=== PATIENT | female | born 1960 | race Caucasian/White ===

== ENCOUNTER 2017-09-25 11:37 | Emergency (ER) | payer OTHER, MEDICAID ==
[~2017-09-25] VITALS: Ht 152.4 cm; Wt 45.8 kg
[~2017-09-25 11:37] MED LIST: BACTRIM DS TAB1 EACH PO; BENTYL 10 MG CA10 M1; BENTYL 10 MG CA10 M1 PO; CELEXA20 MG PO; CIPRO500 M1 PO; CIPROFLOXACIN500 M1 PO; CLONAZEPAM0.5 MG PO; CYCLOBENZAPRINE10 MG PO; DESYREL50 MG; HYDROCODON-ACE1 EAC7 PO; LIDODERM 5%1 PATCH TOP; LINZESS145 MCG PO; LISINOPRIL20 MG PO; MACROBID 100 M100 M1 PO; MEDROL DOSPAK21 TA1 PO; METFORMIN HCL500 MG PO; MOBIC15 MG PO; MOBIC7.5 MG PO; NAPROSYN500 MG PO; ONDANSETRON HCL4 M3 PO; PRILOSEC40 MG; PROBIOTIC1 EAC1 PO; PROTONIX 20 MG20 M1 PO; PROZAC 20 MG20 M1; PYRIDIUM200 MG PO; RANITIDINE HCL150 M1; ROBAXIN 750 MG750 M1 PO; ROBAXIN500 MG PO; SEROQUEL; SKELAXIN 800 M800 M1 PO; ULTRAM 50MG TAB50 MG PO; VALIUM5 MG PO; VISTARIL PO; ZANTAC 150MG T150 MG PO; ZOCOR 10 MG TAB10 MG; ZOFRAN 4 MG ORAL4 M1 DIS
[2017-09-25] MEDS ORDERED: NEURONTIN250 MG/5 M PO (11:45)
[2017-09-25] MEDS ORDERED: IBS MEDICATION (11:46)
[2017-09-25] MEDS ORDERED: CLONAZEPAM 0.50.5 M1 PO ×2 (11:46→11:51)
[2017-09-25] MEDS ORDERED: SLEEP AID (11:46)
[2017-09-25] MEDS ORDERED: GABAPENTIN 100100 MG PO (11:50)
[2017-09-25] MEDS ORDERED: NULEV0.125 MG PO (11:50)
[2017-09-25] MEDS ORDERED: REMERON15 M2 PO (11:50)
[2017-09-25 12:38] LABS: URINE BILIRUBIN NEGATIVE (Negative); URINE BLOOD NEGATIVE (Negative); URINE CLARITY CLEAR; URINE COLOR YELLOW; URINE GLUCOSE-RANDOM NEGATIVE (Negative); URINE KETONES NEGATIVE (Negative); URINE LEUKOCYTES-REFLEX 1+ (Negative); URINE NITRITE-REFLEX NEGATIVE (Negative); URINE PROTEIN NEGATIVE (Negative); URINE SPECIFIC GRAVITY <= 1.005 (1.005-1.030); URINE UROBILINOGEN 0.2 E.U./dl (0.2-1.0)
[2017-09-25 12:46] LABS: AMP/METHAMP Negative (Negative); BARBITURATES Negative (Negative); BENZODIAZEPINES Negative (Negative); COCAINE Negative (Negative); METHADONE Negative (Negative); OPIATES Negative (Negative); PCP Negative (Negative); SQUAMOUS >10 Many /LPF (0-3); THC Negative (Negative)
[2017-09-25 12:47] LABS: ABSOLUTE EOSINOPHILS 0.1 thou/uL (0.0-0.7); ABSOLUTE LYMPHOCYTES 2.4 thou/uL (0.8-5.3); ABSOLUTE MONOCYTES 0.7 thou/uL (0.0-1.2); ABSOLUTE NEUTROPHILS 6.5 thou/uL (1.6-8.1); BASOPHILS 0.4 %; HEMATOCRIT 52.1 % (37.0-47.0); HEMOGLOBIN 17.4 gm/dL (12.0-15.0); LYMPHOCYTES 24.7 %; MCH 32.6 pg (26.0-34.0); MCHC 33.5 g/dL (28.0-37.0); MCV 97.5 fL (80.0-100.0); MONOCYTES 7.6 %; MPV 7.9 fl. (7.2-11.1); NUCLEATED RBCS 0 /100WBC; PLATELET COUNT* 267 thou/uL (150-400); POLYS 66.3 %; RBC 5.34 mil/uL (4.20-5.00); RDW-CV 12.7 % (10.5-14.5); WBC 9.8 thou/uL (4.0-11.0)
[2017-09-25 12:47] LABS: BACTERIA-REFLEX 1-9 Few /HPF (None Seen); CASTS None Seen /LPF (None Seen); CRYSTALS None Seen /LPF (None Seen); MUCUS None Seen strn/LPF (None Seen); URINE RBC 0-2 Rare /HPF (0-2); URINE WBC-REFLEX 6-15 Few /HPF (0-5)
[2017-09-25 12:55] LABS: ANION GAP 6 mmol/L (7-16); BUN 13 mg/dL (7-18); CALCIUM 10.2 mg/dL (8.5-10.1); CHLORIDE 103 mmol/L (98-107); CO2 33 mmol/L (21-32); CREATININE 0.9 mg/dL (0.6-1.3); GLUCOSE 99 mg/dL (70-99); POTASSIUM 3.8 mmol/L (3.5-5.1); SODIUM 142 mmol/L (136-145)
[2017-09-25 13:02] LABS: ALBUMIN 4.5 g/dL (3.4-5.0); ALKALINE PHOSPHATASE 103 U/L (46-116); LIPASE 244 U/L (73-393); SGOT 24 U/L (15-37); SGPT 31 U/L (30-65); TOTAL BILIRUBIN 0.7 mg/dL (<0.1-1.0); TOTAL PROTEIN 8.9 g/dL (6.4-8.2); TROPONIN-I LEVEL <0.06 ng/mL (<0.06)
[2017-09-25] MEDS ORDERED: ACETAMINOPHEN-1 EAC1 PO (14:15)
[2017-09-25] MEDS ORDERED: ROBAXIN 750 MG750 M1 PO (14:15)
[2017-09-25 14:31] VITALS: BP 142/83
--- NOTE | 2017-09-26 12:13 | EKG ---
[place] [address] ELECTROCARDIOGRAM REPORT Name: ADIELNIYAH LIZETT Room: [facility]#: [id number] Admission: 09/25/17 Attend Phys: Discharge: 09/25/17 Date of : 64 Report #: [id number] THIS REPORT FOR: //name// [facility] ED Test Date: 2017-09-25 Test Time: 11:51:09 Pat Name: NIYAH CHUN Department: Room: Gender: F Boom Man: Lexii HOOK : 1960 Requested By: Deanna Huang Order Number: [id number] MD: Shayan Lee Measurements Intervals [place] Rate: 99 P: 46 OR: 137 QRS: 26 QRSD: 89 T: 27 QT: 334 QTc: 429 Interpretive Statements Sinus rhythm septal q waves Left atrial enlargement Compared to ECG 05/27/2017 15:06:01 Sinus tachycardia no longer present T-wave abnormality no longer present Electronically Signed On 09-26-2017 12:13:22 CDT by Shayan Lee [email or web address] <ELECTRONICALLY SIGNED> By: Shayan Lee MD, FAC 09/26/17 1213 1151 [id number] Shayan Lee MD, [facility] /EPI
== END 2017-09-25 14:32 | disposition home or self-care (01) ==
LOC: M.ERS 11:37
PROVIDERS: Physician Assistant
DX: R51 Headache (principal); M54.2 Cervicalgia; I10 Essential (primary) hypertension; F32.9 Major depressive disorder, single episode, unspecified; G89.29 Other chronic pain; M54.9 Dorsalgia, unspecified; M19.90 Unspecified osteoarthritis, unspecified site; F17.210 Nicotine dependence, cigarettes, uncomplicated